=== PATIENT | male | born 2005 | race Caucasian/White ===

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

== ENCOUNTER 2023-06-30 08:41 | Outpatient (AMB) | payer MEDICAID, SELFPAY ==
--- NOTE | 2023-06-30 09:34 | A.OFFVIS_ITS ---
Intake Intake Visit Reasons: circumcision Intake Note: New patient presents today to established treatment for Foreskin Fissure & Circumcision Consult Meds- None Allergies to Antibiotic- No Known Allergies Blood Thinner- None Video Tape Editor Required: No Accompanied by: Self / Same As Patient Allergies No Known Allergies Allergy (Verified 05/16/23 07:31) HPI HPI Comments History of Present Illness Details Salvatore is a 18-year-old male who is here with concerns regarding phimosis. He states is painful when trying to retract the foreskin and sometimes with intercourse. He is interested in a circumcision. In discussion with the patient the referral also indicated he had questions regarding a vasectomy which he states he has not interested in a vasectomy. On examination, redundant foreskin, difficult to retract. Plan: Discussed circumcision. Patient is agreeable, will schedule [facility] Medical History Foreskin fissure Surgical History No pertinent past surgical history Social History Alcohol intake: never Patient Tobacco Use Status: Never used Tobacco Use of substances other than those prescribed or required for medical reasons: No Review of Systems Const All systems reviewed & are unremarkable except as noted in HPI and below Reports no additional complaints Eyes Reports no additional complaints ENT Reports no additional complaints Card Denies dyspnea Resp Denies cough and Denies dyspnea GI Reports no additional complaints Musc Reports no additional complaints Skin/Breast Denies rash and Denies unusual bruising Neuro Reports no additional complaints Psych Reports no additional complaints Endo Reports no additional complaints Valentino/Lymph Reports no additional complaints Aller/Immun Reports no additional complaints Physical Exam Const General: healthy appearing, no acute distress and well developed Orientation/consciousness: patient oriented x3 HEENT Head: Yes normocephalic and Yes atraumatic Eyes Conjunctivae: conjunctivae normal Neck Neck: Yes normal visual inspection Chest Chest palpation & inspection: normal inspection of the chest Resp Effort & Inspection: normal respiratory effort Cardio Rate: regular rate GI Inspection: Yes normal to inspection Palpation (GI): Soft to palpation Penis: uncircumcised and phimosis Scrotum: scrotum normal Skin General skin exam: no rashes or lesions noted Neuro General: patient oriented x3 Extrem General: No pedal edema Psych Appearance: grossly normal Affect: normal affect Results AMB Urinalysis, Automated UA Leukoctes 0 Jelena/uL Last Edit by Sydni Lopez CMA on 06/30/23 09 :53 UA Nitrite Negative Last Edit by Sydni Lopez CMA on 06/30/23 09: 53 UA Urobilinogen 0.2 mg/dL Last Edit by Sydni Lopez CMA on 4 09:53 UA Protein 15 mg/dL Last Edit by Sydni Lopez CMA on 06/30/23 09:5 3 UA pH 6.0 Last Edit by Sydni Lopez CMA on 06/30/23 09:53 UA Blood 0 Greg/uL Last Edit by Sydni Lopez [employer] on 06/30/23 09:53 UA Specific [place] 1.025 Last Edit by Sydni Lopez CMA on 09:53 UA Ketone Negative Last Edit by Sydni Lopez CMA on 06/30/23 09:5 3 UA Bilirubin 0 mg/dL Last Edit by Sydni Lopez CMA on 06/30/23 09: 53 UA Glucose 0 mg/dL Last Edit by Sydni Lopez [facility] on 06/30/23 09:53 Results Reviewed Results Reviewed: Laboratory Last Values Urine pH (Auto) 6.0 06/30/23 09:31 Specific [place] (Auto) 1.025 06/30/23 09:31 Urine Protein (Auto) 15 mg/dL 06/30/23 09:31 Glucose (UA)(Auto) 0 mg/dL 06/30/23 09:31 Urine Ketones (Auto) Negative 06/30/23 09:31 Urine Blood (Auto) 0 Greg/uL 06/30/23 09:31 Urine Nitrite (Auto) Negative 06/30/23 09:31 Urine Bilirubin (Auto) 0 mg/dL 06/30/23 09:31 Urine Urobilinogen (Auto) 0.2 mg/dL 06/30/23 09:31 Leukocyte Esterase (Auto) 0 Jelena/uL 06/30/23 09:31 Assessment & Plan Assessment & Plan (1) Phimosis: Code(s): N47.1 - Phimosis (2) Penile pain: Code(s): N48.89 - Other specified disorders of penis Plan Schedule circumcision Orders: Orders AMB Urinalysis Automated 06/30/23 R33.9 - Retention of urine, unspecified Patient Instructions: The patient had an opportunity to ask questions regarding treatment plan. All questions were answered. Laboratory studies and physical exam results were discussed and reviewed in detail. No major barriers to understanding were identified. The patient expressed understanding and agreement with the above treatment plan. The patient is aware they should contact our office by phone for worsening of their current condition or the appearance of new symptoms. Compliance is encouraged with any medications and followup testing that is ordered. It is a privilege to be allowed the opportunity to participate in the urologic care of your patient. If you have any questions or concerns regarding treatment for the above conditions please do not hesitate to contact me. The office telephone contact is [phone]. This note is constructed in part using voice recognition software. While every effort has been made to ensure accuracy boiler installer errors may have been included. Yours sincerely, Dwayne Lala MD Coding Level of Care Code New Pt Level 3 (40855) Diagnoses Phimosis N47.1 Penile pain N48.89
== END 2023-06-30 10:10 | disposition home or self-care (01) ==
PROVIDERS: PCP Internal Medicine Geriatric Medicine; Visit Provider Urology
DX: N47.1 Phimosis (principal); N48.89 Other specified disorders of penis
CPT/HCPCS: 99203

== ENCOUNTER → 2023-06-30 08:41 | Outpatient (BNVA) | payer MEDICAID, SELFPAY | PROVIDERS: PCP Internal Medicine Geriatric Medicine; Visit Provider Urology | DX: N47.1 Phimosis (principal); N48.89 Other specified disorders of penis | CPT/HCPCS: 81003; 99202 ==

== ENCOUNTER 2024-01-02 09:21 | Emergency (ER) | payer MEDICAID, SELFPAY ==
--- NOTE | ~2024-01-02 | XR_ITS ---
EXAMINATION: XR SHOULDER, BILATERAL CLINICAL INFORMATION: Evaluate for dislocation COMPARISON: None available. TECHNIQUE: 3 views of each shoulder FINDINGS: No acute visible fracture or dislocation. Joint spaces and alignment are maintained. Soft tissues are unremarkable. Visualized portions of the chest are unremarkable. XR/XR shoulder RT min 2V IMPRESSION: No acute visible fracture or dislocation.
--- NOTE | ~2024-01-02 | XR_ITS ---
EXAMINATION: XR SHOULDER, BILATERAL CLINICAL INFORMATION: Evaluate for dislocation COMPARISON: None available. TECHNIQUE: 3 views of each shoulder FINDINGS: No acute visible fracture or dislocation. Joint spaces and alignment are maintained. Soft tissues are unremarkable. Visualized portions of the chest are unremarkable. XR/XR shoulder LT min 2V IMPRESSION: No acute visible fracture or dislocation.
[2024-01-02 09:24] VITALS: BP 125/72; PULSE 77; RESP 18; TEMP 37.1; O2SAT 98; BMI 31.2
--- NOTE | 2024-01-02 09:48 | ED_ITS ---
HPI - General Adult General Chief complaint: General Medical Stated complaint: Dislocated both shoulders Time Seen by Provider: 01/02/24 09:33 Source: patient Mode of arrival: ambulatory Limitations: no limitations History of Present Illness ED Provider: GERALDINE MCKEON PA-C HPI narrative: 18 year old male with pmhx significant for right AC dislocation presents to the ED today for evaluation of bilateral shoulder discomfort after jumping into a [place] yesterday. Patient reports jumping into a [place] and landing wrong. Reports both shoulders dislocated . Patient was able to relocate them back into place however presents today to make sure his shoulders are aligned correctly. Denies numbness/tingling/weakness of the UEs. Denies any other concerns. Related Data Allergies Allergy/AdvReac Type Severity Reaction Status Date / Time No Known Allergies Allergy Verified 01/02/24 09:27 Review of Systems Review of Systems: Constitutional: No fever, chills, fatigue, night sweats, weight changes ENT/Mouth: No ear pain, hearing loss, nasal congestion, sinus pain, rhinorrhea, sore throat Eyes: No eye pain, swelling, redness, vision changes, discharge Cardio: No chest pain, palpitations, ROBERTS, orthopnea, peripheral edema Pulm: No SOB, cough, sputum, wheezing, dyspnea, hemoptysis GI: No nausea, vomiting, hematemesis, abdominal pain, diarrhea, constipation, hematochezia, melena : No irregular bleeding, dysuria, frequency, urgency, hesitancy, hematuria, flank pain, urinary flow changes, urinary incontinence or retention MSK: No back pain, neck pain, joint pain, myalgias, +b/l shoulder discomfort Skin: No lesions, rashes Neuro: No weakness, numbness, paresthesias, LOC, dizziness, headache Psych: No anxiety/panic, depression, SI/HI, AH/VH All other systems reviewed and are negative. [facility] Past Medical History Attestation statement: The following information was validated with the patient. Source: old records reviewed and nursing notes reviewed Medical History Foreskin fissure Surgical History No pertinent past surgical history Social History Social History Alcohol intake: never Patient Tobacco Use Status: Never used Tobacco Advance Directives: No Advance Directives Information Provided: Yes Do you have a plan to hurt others: No Plan Physical Exam ED Vital Signs: Vital Signs - 24 hr 01/02/24 09:24 Temperature 98.7 F Pulse Rate 77 Respiratory Rate 18 Blood Pressure 125/72 Pulse Oximetry 98 Oxygen Delivery Method Room Air BMI result Body Mass Index 31.2 Vital signs stable Const General: cooperative, healthy appearing, comfortable and no acute distress Orientation/consciousness: patient oriented x3 Limitations: no limitations HENMT Head: Yes normal to inspection, Yes No palpable skull fracture present, Yes normocephalic and Yes atraumatic Eyes General: appearance normal, both eyes and all related structures Pupils: Equal, round and reactive pupils present Resp Effort & Inspection: normal respiratory effort and able to speak in complete sentences Auscultation: clear to auscultation bilaterally Cardio Rate: regular rate Rhythm: regular rhythm Back/Spine/Pelvis Other: No midline spinous tenderness or step off deformity. No paraspinal muscle tenderness. Skin General skin exam: no rashes or lesions noted Neuro Other: Strength 5/5 intact throughout.?Sensation intact to light touch.? Neurovascular intact distally.? General: patient oriented x3 and gait normal Cranial nerves: Yes Equal, round and reactive pupils present Extrem Other: + no noted swelling or overlying skin changes to bilateral shoulders. Bilateral shoulders with full ROM intact. Not tender to palpation. No palpable deformity, crepitus, fluctuance, tenderness. Sap Technical Developer strength intact. 2+ radial and ulnar pulses intact. Medications Administered Discontinued Medications Generic Name Dose Route Start Last Admin Trade Name Freq PRN Reason Stop Dose Admin Ketorolac Tromethamine 30 mg 01/02/24 10:48 01/02/24 10:57 Ketorolac Tromethamine 30 Mg/Ml Vial IM 01/02/24 10:49 30 mg ONCE ONE Administration Medical Decision Making Medical Decision Making MDM Narrative: 18 year old male with pmhx significant for right AC dislocation presents to the ED today for evaluation of bilateral shoulder discomfort after jumping into a [place] yesterday. Vital signs are stable. He is nontoxic appearing in no acute distress. On exam, no noted swelling or overlying skin changes to bilateral shoulders. Bilateral shoulders with full ROM intact. Not tender to palpation. No palpable deformity, crepitus, fluctuance, tenderness. Sap Technical Developer strength intact. 2+ radial and ulnar pulses intact. Differential diagnosis includes dislocation, contusion. Lower suspicion for fracture. Unlikely neurovascular compromise, compartment syndrome, threat to limb. Plan for imaging, pain control and re-evaluation. Differential Diagnosis Differential Diagnoses: The differential diagnosis associated with the presentation includes as above. Admission/Observation not indicated. Independent Interpretation I performed an independent interpretation of an: Plain X-Ray Interpretation: XRs bilateral shoulders without acute dislocation, agree with radiologist's interpretation. Radiology Impression Discussion of test interpretation with radiology: I have reviewed the radiologist's reading. Radiologist Impression: EXAMINATION: XR SHOULDER, BILATERAL CLINICAL INFORMATION: Evaluate for dislocation COMPARISON: None available. TECHNIQUE: 3 views of each shoulder FINDINGS: No acute visible fracture or dislocation. Joint spaces and alignment are maintained. Soft tissues are unremarkable. Visualized portions of the chest are unremarkable. XR/XR shoulder RT min 2V IMPRESSION: No acute visible fracture or dislocation. External Record Review External record reviewed: Inpatient record Social Determinants Patient?s care significantly limited by Social Determinants of Health including: Other Social Determinant of Health Critical Care Time Critical Care Time Critical Care Time: No Discharge Plan Discharge Clinical Impression: Acute pain of both shoulders Patient Disposition: Home, Self-Care Instructions: Shoulder Pain (ED) Additional Instructions: Your xrays today are normal. Return with new or worsening symptoms. In the case of an emergency call 911. Print Language: [place]an
[2024-01-02] MEDS: Ketorolac Tromethamine 30 MG/ML VIAL IM (10:57)
[2024-01-02 12:16] VITALS: BP 120/78; PULSE 74; RESP 18; TEMP 36.6; O2SAT 99
== END 2024-01-02 12:19 | disposition home or self-care (01) ==
PROVIDERS: Emergency Provider Emergency Medicine Emergency Medical Services
DX: M25.512 Pain in left shoulder (principal); M25.511 Pain in right shoulder
CPT/HCPCS: 73030; 96372; 99283; 99284; J1885

== ENCOUNTER 2025-01-30 11:20 | Emergency (ER) | payer MEDICAID, SELFPAY ==
--- NOTE | 2025-01-30 11:23 | ED.GENADULT ---
HPI - General Adult General Chief complaint: General Medical Stated complaint: r side neck pain Time Seen by Provider: 01/30/25 11:26 Source: patient, RN notes reviewed and old records reviewed Mode of arrival: ambulatory Limitations: no limitations History of Present Illness ED Provider: Raj [facility] narrative: Patient is a 19-year-old male presenting to the emergency department with complaint of right-sided neck pain for the past week worse over the past 2 days. Using [id number] medication without improvement in symptoms. Feels his symptoms began after sleeping the wrong way. Denies any fall or other recent trauma, MVC etc.. Denies any radiation of pain to right arm. Denies any weakness, numbness, tingling to right arm. Denies fevers. MD complaint: neck pain Onset (ago): week(s) Related Data Previous Rx's ?Medication ?Instructions ?Recorded cyclobenzaprine 10 mg tablet 10 mg PO TID PRN muscle spasm #10 01/30/25 tabs lidocaine 5 % topical patch 1 patch topical DAILY #15 ea 01/30/25 naproxen 500 mg tablet 500 mg PO BID #14 tabs 01/30/25 Allergies Allergy/AdvReac Type Severity Reaction Status Date / Time No Known Allergies Allergy Verified 01/30/25 11:26 Review of Systems Review of Systems: As per HPI Yes all other systems are reviewed and are negative Constitutional: Constitutional: Reports as per HPI [facility] Past Medical History Medical History Foreskin fissure Surgical History No pertinent past surgical history Social History Social History Alcohol intake: never Patient Tobacco Use Status: Never used Tobacco Do you have a plan to hurt others: No Plan Physical Exam ED Vital Signs: Vital Signs - 24 hr 01/30/25 11:24 Temperature 97.5 F Pulse Rate 63 Respiratory Rate 16 Blood Pressure 141/59 H Pulse Oximetry 97 Oxygen Delivery Method Room Air BMI result Body Mass Index 30.8 Vital signs have been reviewed and appear to be correct. Blood pressure normal. Heart rate normal. Respiratory rate normal. Temperature normal. Oxygen saturation normal. Const General: cooperative, healthy appearing and no acute distress Orientation/consciousness: oriented to person, oriented to place, oriented to time and patient oriented x3 Limitations: no limitations HENMT Head: Yes normocephalic and Yes atraumatic Ears: external ears normal General nose exam: Normal external nose present Face and sinus: Yes face symmetric Mouth: oropharynx normal and moist mucous membranes Throat: Yes uvula midline Eyes Pupils: Equal, round and reactive pupils present Neck Neck: Yes normal visual inspection and Yes supple Resp Effort & Inspection: normal respiratory effort and able to speak in complete sentences Auscultation: clear to auscultation bilaterally Cardio Rate: regular rate Rhythm: regular rhythm Heart sounds: S1 normal heart sound present and S2 normal heart sound present GI Palpation (GI): Soft to palpation and nontender Auscultation: normoactive bowel sounds General: Yes no CVA tenderness Back/Spine/Pelvis Back: no CVA tenderness Cervical Spine: normal cervical lordosis, cervical ROM normal, cervical muscular tenderness (right lateral), pain with cervical ROM, No Cervical spine tenderness and No step off deformity Thoracic/Lumbar Spine: thoracic and lumbar spine normal to inspection, thoraco-lumbar ROM normal, No pain with thoraco-lumbar ROM, No thoracic spinal tenderness and No lumbar spinal tenderness Skin General skin exam: elasticity normal and turgor normal Neuro General: oriented to person, oriented to place, oriented to time, patient oriented x3, gait normal, tone normal, moves all extremities, Normal light touch and pain sensation, no focal motor deficits, CN's II-XI intact bilaterally and deep tendon reflexes 2+ bilaterally Cranial nerves: Yes Equal, round and reactive pupils present Cognition (Neuro): normal cognition Motor exam (neuro): 5/5 motor strength present throughout, Normal motor muscle tone present throughout and Motor abnormalities not present Extrem General: Yes full ROM, Yes no pedal edema and Yes no calf tenderness Psych Mental Status: mental status grossly normal Affect: normal affect Thought process: Normal thought process present Medical Decision Making Medical Decision Making MDM Narrative: Patient is a 19-year-old male presenting to the emergency department with complaint of right-sided neck pain for the past week worse over the past 2 days. On exam patient is awake, A+Ox3, VS WNL, afebrile, normal neurological exam without focal deficits, physical exam findings as above. Given reported symptoms and physical exam findings, initial differential includes but is not limited to cervical strain, less likely cervical radiculopathy. In the absence of traumatic injury, unlikely fracture or subluxation. Will treat patient with course of Flexeril, naproxen and topical lidocaine patches. Advised follow up with PCP. Return precautions discussed. Patient verbalized understanding of and agreement with plan. Differential Diagnosis Differential Diagnoses: The differential diagnosis associated with the presentation includes as per [facility] Admission/Observation Consideration of admission/observation: Escalation of care including admission/observation considered Patient would have been admitted to the hospital had their clinical presentation warranted hospital admission. External Record Review External record reviewed: Inpatient record, Office record and Outpatient record Prescription Management I considered prescription management with: Pain Medication and Other Discharge Plan Discharge Clinical Impression: Cervical strain Qualifiers: Encounter type: initial encounter Qualified Code(s): S16.1XXA - Strain of muscle, fascia and tendon at neck level, initial encounter Patient Disposition: Home, Self-Care Instructions: Cervical Strain (DC), Muscle Strain (DC) Additional Instructions: You were evaluated in the emergency department today for neck pain which is likely due to a muscle strain. You are being prescribed a muscle relaxer called cyclobenzaprine. Do not take this in combination with alcohol as it can cause excessive drowsiness. You are also being prescribed naproxen which is a non-steroidal anti-inflammatory medication (NSAID). Do not take this in combination with other NSAIDS such as ibuprofen (Motrin, Advil) or Aleve. You are being prescribed topical lidocaine patches which you can wear for up to 12 hours in a 24 hour period. Do not apply heat directly over the patches. You can apply warm compresses to the affected area for 10-15 minutes at a time several times daily. You should also perform gentle stretching exercises of your neck. Follow up with your primary care provider as needed. Return to the emergency department if you develop new weakness, numbness, tingling to her arm, worsening pain, fever or any other new or concerning symptoms. Prescriptions: New cyclobenzaprine 10 mg tablet 10 mg PO TID PRN (Reason: muscle spasm) Qty: 10 0RF lidocaine 5 % adhesive patch,medicated 1 patch topical DAILY Qty: 15 0RF Rx Instructions: leave on most painful area for up to 12 hrs naproxen 500 mg tablet 500 mg PO BID Qty: 14 0RF Print Language: Tajik
[2025-01-30 11:24] VITALS: BP 141/59; PULSE 63; RESP 16; TEMP 36.4; O2SAT 97; BMI 30.8
[2025-01-30 11:34] VITALS: BP 141/59; PULSE 63; RESP 16; TEMP 36.4; O2SAT 97
== END 2025-01-30 11:35 | disposition home or self-care (01) ==
PROVIDERS: Emergency Provider Emergency Medicine
DX: M54.2 Cervicalgia (principal)
CPT/HCPCS: 99282; 99283

== ENCOUNTER 2025-05-26 18:37 | Outpatient (REF) | payer MEDICAID, SELFPAY ==
--- OUTSIDE RECORDS SUMMARY | 2025-05-26 13:30 | XMS_ITS | Encounter Summary ---
Author Organization [employer] Address [address] [place] [address] Care Team Providers Care Blueprint Tracer Name Role Phone Denisse Dash Primary Care Provider Reason for Visit * Reason Comments Annual Exam Encounter Details Date Type Department Care Team ([facility] st Contact Info) Description 05/26/2025 1:30 PM EST Office Visit [facility] [address], [place] [id number] Denisse Dash ANP [address] [place] [address] Healthcare maintenance (Primary Dx); Encounter for immunization; Routine screening for STI (sexually transmitted infection) Social History Tobacco Use Types Packs/Day Years Used Date Smoking Tobacco: Former Passive Smoke Exposure: Never Smokeless Tobacco: Never Tobacco Cessation:Counseling Given: No Alcohol Use Standard Drinks/Week Comments Never 0 (1 standard drink = 0.6 oz pur e alcohol) Alcohol Answer Date Recorded How often do you have a drink containing alcohol ? 1 05/21/2024 How many drinks containing a lcohol do you have on a typical day when you are drinking? 0 05/21/2024 How often do you have six or more drinks on one occasion? 0 05/21/2024 Depression Answer Date Recorded Patient Health Questionnaire-9 Score 0 05/26/2025 Patient Health Questionnaire-9 Score 0 05/26/2025 Last PHQ-9: Questionnaire Data Not on file 1 07/27/2024 Housing Stability Answer Date Recorded What is your housing situation today? I have ivan man 05/26/[address] you li ve. Do you have problems with any of the following? None of the above 05/26/2025 Food Insecurity Answer Date Recorded Within the past 12 months, y ou worried that your food would run out before you got money to buy more: Never True 05/26/2025 Within the past 12 months,th e food you bought just didn't last and you didn't have enough money to get more: Never True Transportation Answer Date Recorded In the past 12 months, has l ack of transportation kept you from medical appts, meetings, work or from getting things needed for daily living? No 05/26/2025 Utilities Answer Date Recorded In the past 12 months, has t he electric, gas, oil or water company threatened to shut off services in your home? No 05/26/2025 Depression Answer Date Recorded Patient Health Questionnaire-2 Score 0 05/26/2025 Internet Access Answer Date Recorded Internet Access Q1 Yes 05/26/2025 Internet Access Q2 Not on file 05/26/2025 Sex and Gender Information Value Date Recorded Sex Assigned at Male 04/11/2022 10:30 AM EDT Legal Sex Male 10:30 AM EDT Gender Identity Male 04/11/2022 10:30 AM EDT Sexual Orientation Straight 04/11/2022 10 :30 AM EDT documented as of this encounter Last Filed Vital Signs Vital Sign Reading Time Taken Comments Blood Pressure 100/62 05/26/2025 1:45 PM EST Pulse 64 05/26/2025 1:45 PM EST Temperature 36.3 C (97.3 F) 05/26/2025 1:45 PM EST Respiratory Rate 20 05/26/2025 1:45 PM EST Oxygen Saturation 97% 05/26/2025 1:45 PM EST Inhaled Oxygen Concentration - - Weight 97.5 kg (215 lb) 05/26/2025 1:45 PM EST Height 178.3 cm (5' 10.18 ) 05/26/2025 1:[address] Body Mass Index 30.69 05/26/2025 1:45 PM EST documented in this encounter Functional Status * Over the past 2 weeks, how often have you been bothered by any of the following problems? Question Answer Date of Assessment Author Patient Health Questionnaire -2 Score 0 05/26/2025 1:50 PM EST Gerardo Crum MA * Little interest or pleasure in doing things Answer Date of Assessment Author Not at all 05/26/2025 1:50 PM Odilon Womack MA * Feeling down, depressed, or hopeless Answer Date of Assessment Author Not at all 05/26/2025 1:50 PM Odilon Womack MA * Trouble falling or staying asleep, or sleeping too much Answer Date of Assessment Author Not at all 05/26/2025 1:50 PM Odilon Womack MA * Feeling tired or having little energy Answer Date of Assessment Author Not at all 05/26/2025 1:50 PM Odilon Womack MA * Poor appetite or overeating Answer Date of Assessment Author Not at all 05/26/2025 1:50 PM Odilno Womack MA * Feeling bad about yourself - or that you are a failure or have let yourself or your family down Answer Date of Assessment Author Not at all 05/26/2025 1:50 PM Odilon Womack MA * Trouble concentrating on things, such as reading the newspaper or watching television Answer Date of Assessment Author Not at all 05/26/2025 1:50 PM Odilon Womack MA * Moving or speaking so slowly that other people could have noticed? Or the opposite - being so fidgety or restless that you have been moving around a lot more than usual. Answer Date of Assessment Author Not at all 05/26/2025 1:50 PM Odilon Womack MA * Thoughts that you would be better off or hurting yourself in some way Answer Date of Assessment Author Not at all 05/26/2025 1:50 PM Odilon Womack MA * Patient Health Questionnaire-9 Score Answer Date of Assessment Author 0 05/26/2025 1:50 PM Odilon Womack MA * Over the last 2 weeks, how often have you been bothered by any of the following problems? Question Answer Date of Assessment Author Feeling nervous, anxious, or on edge 0 05/26/2025 1:51 PM Gerardo Womack MA Not being able to stop or co ntrol worrying 0 05/26/2025 1:51 PM Gerardo Womack MA Worrying too much about diff erent things 0 05/26/2025 1:51 PM EST Gerardo Crum MA Trouble relaxing 0 05/26/2025 1:51 PM EST Gerardo Chun MA Being so restless that it is hard to sit still 0 05/26/2025 1:51 PM EST Gerardo Crum MA Becoming easily annoyed or irritable 0 05/26/2025 1:51 PM EST Gerardo Crum MA Feeling afraid as if somethi ng awful might happen 0 05/26/2025 1:51 PM EST Gerardo Crum MA MANOHAR-7 Total Score 0 05/26/2025 1:51 PM Gerardo Womack MA documented as of this encounter Progress Notes * LEONA Rosen - 05/26/2025 1:30 PM EST SUBJECTIVE: Salvatore Wasserman is a 20 y.o. year old male who presents for routine physical exam. Deniesrecent illness, injury, or hospitalization. 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 HENT: Negative for sore throat. Respiratory: Negative for chest tightness, shortness of breath and wheezing. Gastrointestinal: Negative for constipation. Endocrine: Negative for polydipsia, polyphagia and polyuria. Genitourinary: Negative for difficulty urinating and dysuria. Musculoskeletal: Negative for back pain. Skin: Negative for rash. Neurological: Negative for headaches. Psychiatric/Behavioral: Negative for sleep disturbance. OBJECTIVE: Vitals: 05/26/25 1345 BP: 100/62 BP Location: Left arm Patient Position: Sitting BP Cuff Size: Large adult Pulse: 64 Resp: 20 Temp: 97.3 ??F (36.3 ??C) TempSrc: Temporal SpO2: 97% Weight: 215 lb (97.5 kg) Height: 5' 10.18 (1.783 m) Physical Exam Constitutional: General: He is not in acute distress. Appearance: Normal appearance. He is not ill-appearing. HENT: Head: Normocephalic and atraumatic. Right Ear: Tympanic membrane and ear canal normal. Left Ear: Tympanic membrane and ear canal normal. Eyes: General: No scleral icterus. Extraocular Movements: Extraocular movements intact. Pupils: Pupils are equal, round, and reactive to light. Cardiovascular: Rate and Rhythm: Normal rate and regular rhythm. Heart sounds: Normal heart sounds. No murmur heard. Pulmonary: Effort: Pulmonary effort is normal. No accessory muscle usage or respiratory distress. Breath sounds: Normal breath sounds. No wheezing. Abdominal: General: Bowel sounds are normal. Lymphadenopathy: Cervical: No cervical adenopathy. Skin: General: Skin is warm and dry. Neurological: Mental Status: He is alert and oriented to person, place, and time. Psychiatric: Mood and Affect: Mood normal. Behavior: Behavior normal. ASSESSMENT/PLAN Salvatore was seen today for annual exam. Diagnoses and all orders for this visit: Healthcare maintenance (Primary) Healthy 20yo IZ updated today STI testing Affirmed ongoing condom use Congratulated on graduating college soon Encounter for immunization - COVID-19 VACCINE [id number] (Comirnaty) 19 yrs + - FLU VACCINE TRIVALENT [id number] (Fluarix) 19 yrs + - Cancel: PCV-20 VACCINE 6 wks + Routine screening for STI (sexually transmitted infection) - Chlamydia/N. Gonorrhoeae, PCR, Urine - Hepatitis C Antibody with Reflex to HCV, RNA, Quantitative, Real-Time PCR; Future - HIV-1/2 Antigen and Antibodies, Fourth Generation, with Reflexes; Future - Syphilis Screen; Future This note was drafted using Ambient (AI) technology. The patient/patient's guardian has been informed and has consented to the use of this technology: Yes Based on our discussion, I have outlined the following instructions for you: - If you have new sexual partners, get tested for sexually transmitted infections every 3 months. - Try to drink more water each day to help with your slightly low blood pressure. Next appointment(s): Annual follow-up scheduled, with option for 18-month interval if no new concerns. Follow Up: 18mo PE Medications Ordered Prior to Encounter[4] Tanzanian Translation: Patient is bilingual and declines translation services [1] Patient Active Problem List Diagnosis Normal oral exam Dental plaque [2] No past surgical history on file. [3] No family history on file. [4] No current outpatient medications on file prior to visit. No current facility-administered medications on file prior to visit. documented in this encounter Plan of Treatment Scheduled Orders Name Type Priority Associated Diagnoses Orde r Schedule Chlamydia/N. Gonorrhoeae, PCR, Urine Lab Routine Routine screening for STI (sexually transmitted infection) Ordered: 05/26/2025 Hepatitis C Antibody with Reflex to HCV, RNA, Quantitative, Real-Time PCR Lab Routine Routine screening for STI (sexually transmitted infection) Expected: 05/26/2025 (Approximate), Expires: 05/26/2026 HIV-1/2 Antigen and Antibodies, Fourth Generation, with Reflexes Lab Routine Routine screening for STI (sexually transmitted infection) Expected: 05/26/2025 (Approximate), Expires: 05/26/2026 Syphilis Screen Lab Routine Routine screening for STI (sexually transmitted infection) Expected: 05/26/2025 (Approximate), Expires: 05/26/2026 documented as of this encounter Visit Diagnoses Diagnosis Healthcare maintenance- Primary Encounter for immunization Routine screening for STI (sexually transmitted infection) Screening examination for venereal disease documented in this encounter Additional Health Concerns Assessment Noted Time PHQ-9 Depression Total Score: 0 05/26/20 25 1:50 PM EST documented as of this encounter Care Teams Blueprint Tracer Relationship Specialty Start Date End Date Denisse Dash ANP [address] [place] [address] PCP - General Family Medicine 10/26/23 documented as of this encounter
--- OUTSIDE RECORDS SUMMARY | 2025-05-26 22:47 | XMS_ITS | Encounter Summary ---
Author Organization [employer] Address [address] [place] [address] [address] Care [address] Mechanical Engineer Name Role Phone CoreyLeeann CLINTON Primary Care Provider [phone] Denisse Dash Primary Care Provider [phone] Reason for Visit * Reason Onset Date Comments lost retainer 03/23/2023 Encounter Details Date Type Department Care Team (Late st Contact Info) Description 03/23/2023 Telephone [facility] [address] [place] [address] Melania Canas, DMD [address] [place] [address] lost retainer Social History Tobacco Use Types Packs/Day Years Used Date Smoking Tobacco: Never Assessed Sex and Gender Information Value Date Recorded Sex Assigned at Male 04/11/2022 10:30 AM EDT Legal Sex Male 10:30 AM EDT Gender Identity Male 04/11/2022 10:30 AM EDT Sexual Orientation Straight 04/11/2022 10 :30 AM EDT documented as of this encounter Miscellaneous Notes * Telephone Encounter - Haley Frank - 03/23/2023 1:33 PM EDT Patient called in to try to make an appt for lost retainer. I transferred him to [facility]THO. He called back about an hour later stating that he was transferred and no one answered. I did ask patient if heleft a message and he said yes. I did inform patient that office has a certain about of time to reach back out but that I would send a message to remind office to contact him DR documented in this encounter Plan of Treatment Not on file documented as of this encounter Visit Diagnoses Not on filedocumented in this encounter Care Teams Rd Mechanical Engineer Relationship Specialty Start Date End Date Leeann Nicole FNP [address] [place] [address] PCP - General Family Medicine 02/09/23 10/25/23 Denisse Dash ANP [address] [place] [address] PCP - General Family Medicine 10/26/23 documented as of this encounter
--- OUTSIDE RECORDS SUMMARY | 2025-05-26 22:47 | XMS_ITS | Encounter Summary ---
Author Organization [employer] Address [address] [place] [address] Care Team Providers Care Lead Advisor Name Role Phone Denisse Dash Primary Care Provider [phone] Reason for Visit * Reason Onset Date Comments chart prep 05/22/2025 Encounter Details Date Type Department Care Team ([facility] Contact Info) Description 05/22/2025 Telephone [facility] [address] [place] [address] Denisse Dash ANP [address] [place] [address] chart prep Social History Tobacco Use Types Packs/Day Years Used Date Smoking Tobacco: Some Days Cigarettes Passive Smoke Exposure: Never Smokeless Tobacco: Current Alcohol Use Standard Drinks/Week Comments Never 0 [...] Date Recorded Patient Health Questionnaire-9 Score 0 05/21/2024 Patient Health Questionnaire-9 Score 0 05/21/2024 Last PHQ-9: Questionnaire Data Not on file 1 07/22/2023 Housing Stability Answer Date Recorded What is your housing situation today? I am not s ure 05/21/[address] you li ve. Do you have problems with any of the following? None of the above 05/21/2024 Food Insecurity Answer Date Recorded Within the past 12 months, y ou worried that your food would run out before you got money to buy more: Never True 05/13/2024 Within the past 12 months,th e food you bought just didn't last and you didn't have enough money to get more: Never True 07/2023 Transportation Answer Date Recorded In the past 12 months, has l ack of transportation kept you from medical appts, meetings, work or from getting things needed for daily living? No 05/13/2024 Utilities Answer Date Recorded In the past 12 months, has t he electric, gas, oil or water company threatened to shut off services in your home? No 05/13/2024 Depression Answer Date Recorded Patient Health Questionnaire-2 Score 0 05/21/2024 Internet Access Answer Date Recorded Internet Access Q1 Yes 05/13/2024 Internet Access Q2 Not on file 05/13/2024 Sex and Gender Information Value Date Recorded Sex Assigned at Male 04/11/2022 10:30 AM EDT Legal Sex Male 10:30 AM EDT Gender Identity Male 04/11/2022 10:30 AM EDT Sexual Orientation Straight 04/11/2022 10 :30 AM EDT documented as of this encounter Miscellaneous Notes * Telephone Encounter - Gerardo Crum MA - 05/22/2025 4:04 PM EST Chart Prep Labs: not applicable Images: not applicable Referrals: not applicable Vaccines due: Covid, Flu, and PCV20 Screenings: STI screening and HIV screening Overdue care gaps: SBIRT, SDOH, PHQ-9, MANOHAR-7, Oral health screening, and Disability screen documented in this encounter Plan of Treatment Not on file documented as of this encounter Visit Diagnoses Not on filedocumented in this encounter Additional Health Concerns Assessment Noted Time PHQ-9 Depression Total Score: 0 05/21/20 10:56 AM EST documented as of this encounter Care Teams Lead Advisor Relationship Specialty Start Date End Date Denisse Dash ANP [address] [place] [address] PCP - General Family Medicine 10/26/23 documented as of this encounter
--- OUTSIDE RECORDS SUMMARY | 2025-05-26 22:47 | XMS_ITS | Clinical Summary ---
Author Organization [employer] Address [address] [facility] [address] [place] [address] Care Team Providers Care Plumber Supervisor Name Role Phone Denisse Dash Primary Care Provider [phone] Allergies No known active allergies Medications No known medications Active Problems Problem Noted Date Diagnosed Date Normal oral exam 11/01/2023 Dental plaque 11/01/2023 Encounters Date Type Department Care Team Description 05/26/2025 1:30 PM EST Office Visit [facility] [address] [place] [address] [phone] Denisse Dash ANP Healthcare maintenance (Primary Dx); Encounter for immunization; Routine screening for STI (sexually transmitted infection) 05/26/2025 Travel 05/22/2025 Telephone [facility] [address] [place] [address] [phone] Denisse Dash ANP chart prep 05/19/2025 Patient Outreach [facility] [address] [place], [place] [phone] Denisse Dash ANP Pre-visit Planning ([facility] unable to reach ) 03/03/2025 Telephone [facility] [address] [place] [phone] Denisse Dash ANP dec recall from Last 3 Months Immunizations Immunization Administration Dates Next Due HPV 9-Valent 12/16/2016,04/29/2016 Hep A, ped/adol, 2 dose 12/16/2016,04/29/2016 Hep B, Adolescent or Pediatric 07/05/2016,2015,11/02/2015 IPV 12/16/2016, 6,01/13/2016,11/01 Influenza injectable quadriv alent preservative free 05/12/2023,03/27/2018,06/16/2017,04/29 Influenza, seasonal, injecta ble, preservative free 05/26/2025,05/21/2024 MMR 01/13/2016,11/02/2015 Meningococcal MCV4P [id number]-135 02/25/2020,11/02/19 16 Pfizer Covid-19 Vaccine 12+ 05/26/2025 TD (adult), 2 Lf tetanus tox oid, preservative free, adsorbed 01/13/2016,11/02/2015 Tdap 01/13/2016 Varicella 01/13/2016,11/02/2015 Social History Tobacco Use Types Packs/Day Years [...] is your housing situation today? I have ivanjulio man 05/26/[address] you [...] Orientation Straight 04/11/2022 10 :30 AM EDT Last Filed Vital Signs Vital Sign Reading [...] Mass Index 30.69 05/26/2025 1:45 PM EST Plan of Treatment Health Maintenance Due Date Last Done Comments Chlamydia and Gonorrhea Screening 2003 HIV Screening 2003 Family Planning (PISQ) 2018 Meningococcal B Vaccine (1 of 2 - Standard) 2019 Hepatitis C Screening 2021 Dental Oral Exam 05/21/2025 11/18/2024, 11/01/2023 Dental X-Ray: Bitewings 07/13/2025 07/12/2024, 10/31 Dental Prophylaxis 07/17/2025 01/13/2025, 0 07/12/2024, 11/01/2023 DTaP/Tdap/Td Vaccines (3 - Td or Tdap) 01/12/2026 01/13/2016, 01/13/2016, 11/02/2015 Alcohol/Substance Use Screening 05/26/2026 05/26/2025 Depression Screening 05/26/2026 05/26/2025, 05/26/20 25 Disability Screening 05/26/2026 05/26/2025 SDOH Screening 05/26/2026 05/26/2025 Tobacco Screening 05/26/2026 05/26/2025 Dental X-Ray: Full Mouth 11/01/2026 11/01/2023, 0701/2021 Zoster Vaccines (1 of 2) 2053 RSV Patients and Patients Aged 60 years or older (1 - 1-dose 75+ series) 2078 Hepatitis B Vaccines Completed 07/05/2016, 01/13/2016, 11/02/2015 HPV Vaccines Completed 12/16/2016, 04/29/2016 Hepatitis A Vaccines Completed 12/16/2016, 04/29/20 16 IPV Vaccines Completed 12/16/2016, 04/12, 01/13/2016, Additional history exists Meningococcal Vaccine Completed 02/25/2020, 016 COVID-19 Vaccine Completed 05/26/2025, , 11/11/2020, Additional history exists Influenza Vaccine Completed 05/26/2025, , 05/12/2023, Additional history exists HIB Vaccines Aged Out No longer eligi ble based on patient's age to complete this topic Pneumococcal Vaccine: Pediatrics (0 to 5 Years) and At-Risk Patients (6 to 49) Years Aged Out No longer eligible based on patient's age to complete this topic RSV under 20 months Aged Out No longe r eligible based on patient's age to complete this topic Rotavirus Vaccines Aged Out No longer eligible based on patient's age to complete this topic Procedures Procedure Name Priority Date/Time Associated Diagnosis Comments PROPHYLAXIS - ADULT Routine 01/13/2025 1 0:00 AM EDT Dental calculus PERIODIC ORAL EVALUATION - ESTABLISHED PATIENT Routine 11/18/2024 10:00 AM EDT BITEWINGS - 4 RADIOGRAPHIC IMAGES Routine 07/12/2024 9:00 AM EST Normal oral exam Dental plaque Dental calculus INTRAORAL - COMPLETE SERIES OF RADIOGRAPHIC IMAGES Routine 11/01/2023 10:00 AM EDT Normal oral exam Dental calculus from Last 3 Months or Most Recently Relevant to Health Maintenance Insurance [employer] [employer] [place] AD[place] Care Teams Plumber Supervisor Relationship Specialty Start Date End Date Denisse Dash ANP [address] [place] [address] PCP - General Family Medicine 10/26/23
--- OUTSIDE RECORDS SUMMARY | 2025-05-26 22:47 | XMS_ITS | Encounter Summary ---
Author Organization [employer] Address [address] [place] [address] Care Team Providers Care Broke Beater Operator Name Role Phone Denisse Dash Primary Care Provider [phone] Encounter Details Date Type Department Care Team (Latest Contact Info) Description 05/26/2025 Travel Social History Tobacco Use Types Packs/Day Years Used Date Smoking Tobacco: Former Passive Smoke Exposure: Never Smokeless Tobacco: Never Alcohol Use Standard Drinks/Week Comments Never 0 [...] AM EDT documented as of this encounter Functional Status * Over the past 2 weeks, how often have you been bothered by any of the following problems? Question Answer Date of Assessment Author Patient Health Questionnaire -2 Score 0 05/26/2025 1:50 PM Gerardo Womack MA * Little interest or pleasure in [...] 1:50 PM Odilon Womack MA * Feeling bad about yourself [...] diff erent things 0 05/26/2025 1:51 PM Gerardo Womack MA Trouble relaxing 0 05/26/2025 1:51 PM EST Gerardo Chun MA Being so restless that it is hard to sit still 0 05/26/2025 1:51 PM Gerardo Womack MA Becoming easily annoyed or irritable 0 05/26/2025 1:51 PM Gerardo Womack MA Feeling afraid as if somethi ng awful might happen 0 05/26/2025 1:51 PM Gerardo Womack MA MANOHAR-7 Total Score 0 05/26/2025 1:51 PM Gerardo Womack MA documented as of this encounter Plan of Treatment Not on file documented as of this encounter Visit Diagnoses Not on filedocumented in this encounter Additional Health Concerns Assessment Noted Time PHQ-9 Depression Total Score: 0 05/26/20 25 1:50 PM EST documented as of this encounter Care Teams Broke Beater Operator Relationship Specialty Start Date End Date Denisse Dash ANP [address] [place] [address] . VIVIANA Prakash [id number] PCP - General Family Medicine 10/26/23 documented as of this encounter
[2025-05-27 09:58] LABS: CT PCR Urine NOT DETECTED (Not Detect.); NG PCR Urine NOT DETECTED (Not Detect.)
== END 2025-05-26 18:38 | disposition home or self-care (01) ==
LOC: HO.HHCLNP 18:37
PROVIDERS: Visit Provider Nurse Practitioner Primary Care
DX: Z20.2 Contact with and (suspected) exposure to infections with a predominantly sexual mode of transmission (principal)
CPT/HCPCS: 87491; 87591